=== PATIENT | female | born 1975 | race Caucasian/White ===

== ENCOUNTER 2019-09-15 07:16 | Day surgery (SDC) | payer BC, OTHER ==
[~2019-09-15 07:16] MED LIST: Dexamethasone 4 MG/ML 5 ML MDV ONE; Lactated Ringers 1,000 ML IV SCH; Midazolam 1 MG/ML 2 ML SDV ONE; Ondansetron 4 MG/2 ML SDV ONE; Propofol 200 MG/20 ML SDV ONE; ceFAZolin 2 GM in Premix Bag 1 BAG IV SCH; ceFAZolin/Dextrose,Iso-Osmotic 2 GM/50 ML Duplex Bag IV ONE; fentaNYL 250 MCG/5 ML SDV ONE
[2019-09-15] MEDS ORDERED: Scopolamine 1.5 MG Transdermal Patch TRDERM PRN (08:15)
--- NOTE | 2019-09-15 08:15 | PCM.PREANE ---
Preanesthetic Assessment - Anesthesia/Transfusion/Family Hx Type of Anesthesia Reaction: Excessive Nausea/Vomiting Family History of Anesthesia Reaction: No Transfusion History: No Prior Transfusion(s) Intubation History: Unknown - Review of Systems General: No Symptoms Pulmonary: No Symptoms Cardiovascular: No Symptoms Gastrointestinal: No Symptoms Neurological: No Symptoms Other: Reports: None - Physical Assessment Height: 5 ft 7 in Weight: 64.864 kg ASA Class: 1 Mental Status: Alert & Oriented x3 Airway Class: Mallampati = 2 Dentition: Reports: Normal Dentition Thyro-Mental Finger Breadths: 3 Mouth Opening Finger Breadths: 3 ROM/Head Extension: Full Lungs: Clear to Auscultation, Normal Respiratory Effort Cardiovascular: Regular Rate, Regular Rhythm - Lab Values: Laboratory Last Values Urine HCG, Qual NEGATIVE (NEGATIVE) 09/15/19 07:30 - Allergies Allergies/Adverse Reactions: Allergies Allergy/AdvReac Type Severity Reaction Status Date / Time No Known Allergies Allergy Verified 09/09/19 10:47 - Blood Blood Available: No - Anesthesia Plan Pre-Op Medication Ordered: None - Acknowledgements Anesthesia Type Planned: General Anesthesia Pt an Appropriate Candidate for the Planned Anesthesia: Yes Alternatives and Risks of Anesthesia Discussed w Pt/Guardian: Yes Pt/Guardian Understands and Agrees with Anesthesia Plan: Yes PreAnesthesia Questionnaire HEENT History: Reports: None Cardiovascular History: Reports: None Respiratory History: Reports: None Gastrointestinal History: Reports: None Genitourinary History: Reports: Renal Calculus [employer]ENTICE History: Reports: Musculoskeletal History: Reports: Osteoarthritis, Other (See Below) (pinning of left hip slipped femoral epiphysis at age 11) Neurological History: Reports: None Psychiatric History: Reports: None Endocrine/Metabolic History: Reports: Other (See Below) Other Endocrine/Metabolic History: goiter Hematologic History: Reports: None Immunologic History: Reports: None Other Oncologic History: melanoma-rt hip Dermatologic History: Reports: Other (See Below) Other Dermatologic History: melanoma R hip - Past Surgical History Head Surgeries/Procedures: Reports: None HEENT Surgical History: Reports: None Cardiovascular Surgical History: Reports: None Respiratory Surgical History: Reports: None GI Surgical History: Reports: None Female Surgical History: Reports: Section, Lithotripsy/ESWL Endocrine Surgical History: Reports: None Neurological Surgical History: Reports: None Musculoskeletal Surgical History: Reports: Other (See Below) Other Musculoskeletal Surgeries/Procedures:: hx sx R foot, percutaneous pinning for slipped capital femoral epiphysis-left hip Oncologic Surgical History: Reports: None Dermatological Surgical History: Reports: Skin Biopsy - SUBSTANCE USE Smoking Status *Q: Never Smoker - HOME MEDS Home Medications: Home Meds Multivitamin [Multivitamins] 1 tab PO DAILY 09/09/19 [History] - CURRENT (IN HOUSE) MEDS Current Meds: Current Medications Lactated Ringer's (Ringers, Lactated) 1,000 mls @ 125 mls/hr IV ASDIRECTED PHILL Cefazolin Sodium/Dextrose 2 gm (/ Premix) 50 mls @ 100 mls/hr IV ONETIME PHILL Discontinued Medications Cefazolin Sodium/Dextrose (Ancef) Confirm Administered Dose 2 gm IV .STK-MED ONE Stop: 09/15/19 07:04 Dexamethasone (Dexamethasone) Confirm Administered Dose 20 mg .ROUTE .STK-MED ONE Stop: 09/15/19 07:12 Fentanyl (Sublimaze) Confirm Administered Dose 250 mcg .ROUTE .STK-MED ONE Stop: 09/15/19 07:11 Lidocaine HCl (Xylocaine-Mpf 1%) Confirm Administered Dose 5 ml .ROUTE .STK-MED ONE Stop: 09/15/19 07:12 Midazolam HCl (Versed 1 Mg/Ml) Confirm Administered Dose 2 mg .ROUTE .STK-MED ONE Stop: 09/15/19 07:02 Ondansetron HCl (Zofran) Confirm Administered Dose 4 mg .ROUTE .STK-MED ONE Stop: 09/15/19 07:12 Propofol (Diprivan 20 Ml) Confirm Administered Dose 200 mg .ROUTE .STK-MED ONE Stop: 09/15/19 07:02
[2019-09-15] MEDS ORDERED: fentaNYL 100 MCG/2 ML SDV IVPUSH PRN ×2 (08:20→10:56)
[2019-09-15] MEDS ORDERED: Glycopyrrolate 0.2 MG/ML SDV ONE ×2 (09:04→09:07)
[2019-09-15] MEDS ORDERED: Phenylephrine/Normal Saline 100 MCG/ML 10 ML Syringe ONE (09:04)
[2019-09-15] MEDS ORDERED: Ketorolac 30 MG/ML SDV ONE (09:06)
[2019-09-15] MEDS ORDERED: Bupivacaine 0.5% 30 ML SDV ONE (09:56)
[2019-09-15] MEDS ORDERED: Acetaminophen/HYDROcodone 325-5 MG Tab PO ONE (09:57)
--- NOTE | 2019-09-15 09:58 | PCM.OPNOTE ---
- General Post-Op/Procedure Note Date of Surgery/Procedure: 09/15/19 Operative Procedure(s): removal of hardware deep left hip Findings: SCFE screw Pre Op Diagnosis: left hip retained hardware Post-Op Diagnosis: same Anesthesia Technique: General LMA Primary Surgeon: Abdelrahman Tsang Mai Pack Operator: Ginger Velazco EBL in mLs: 5 Complications: none Condition: Good
--- NOTE | 2019-09-15 10:46 | PCM.POSTAN ---
POST ANESTHESIA ASSESSMENT - MENTAL STATUS Mental Status: Alert, Oriented - VITAL SIGNS Vital Signs: Last Vital Signs Temp 36.4 C 09/15/19 10:05 Pulse 63 09/15/19 10:36 Resp 10 L 09/15/19 10:36 BP 96/52 L 09/15/19 10:36 Pulse Ox 94 L 09/15/19 10:36 - RESPIRATORY Respiratory Status: Respiratory Rate WNL, Airway Patent, O2 Saturation Stable - CARDIOVASCULAR CV Status: Pulse Rate WNL, Blood Pressure Stable - GASTROINTESTINAL GI Status: No Symptoms - PAIN Pain Score: 0 - POST OP HYDRATION Hydration Status: Adequate & Stable
--- NOTE | 2019-09-15 12:53 | PCM48HPAN ---
Post Anesthesia Note - EVALUATION WITHIN 48HRS OF ANESTHETIC Vital Signs in Normal Range: Yes Patient Participated in Evaluation: Yes Respiratory Function Stable: Yes Airway Patent: Yes Cardiovascular Function Stable: Yes Hydration Status Stable: Yes Pain Control Satisfactory: Yes Nausea and Vomiting Control Satisfactory: Yes Mental Status Recovered: Yes Vital Signs: Last Vital Signs Temp 36.5 C 09/15/19 10:50 Pulse 70 09/15/19 10:50 Resp 15 09/15/19 10:50 BP 104/56 L 09/15/19 10:50 Pulse Ox 96 09/15/19 10:50
[2019-09-15 15:34] VITALS: BP 94/51; PULSE 60
--- NOTE | 2019-09-15 16:02 | CR ---
Left hip: Single fluoroscopic spot view of the left hip was obtained utilizing C-arm device. Lucency noted within the left hip, please correlate if this represents screw removal or represents decompression of the femoral head. No additional abnormality is seen. Fluoroscopy time given as 144.9 seconds Impression: 1. Procedural study as noted above. Diagnostic code #2 This report was dictated in [place] Standard Time
--- NOTE | 2019-09-15 16:26 | OR ---
SURGEON: Abdelrahman Vela MD DATE OF PROCEDURE: 09/15/2019 PRIMARY SURGEON: Abdelrahman Vela MD. DIRECTOR OF HOME ECONOMICS: WESTON Rubio. PREOPERATIVE DIAGNOSIS: Retained hardware, left hip. POSTOPERATIVE DIAGNOSIS: Retained hardware, left hip. OPERATION PERFORMED: Removal of hardware, deep, left hip. ANESTHESIA: General LMA. COMPLICATIONS: None. ESTIMATED BLOOD LOSS: 5 mL. SPECIMENS: None. INDICATIONS: Patient is a 43-year-old female, who had a SCFI when she was younger with a single noncannulated screw. She has severe arthritis, needs hip replacement. I discussed with her staged removal of screw with replacement at a later date due to difficulty removing the screw, and therefore, she wished to proceed with screw removal. She understands the risks, benefits, alternatives, and complications of procedure including, but not limited to, infection, neurovascular injury, continued pain, nonresolution of symptoms, fracture, need for postoperative rehab protocol, and she wished to proceed. PROCEDURE IN DETAIL: Patient was seen in preoperative area. Operative site was marked with the patient. She was transferred to the operating, placed supine on a [place] table. General anesthesia was induced and an LMA was placed. She received preop antibiotics of Ancef. Leg was placed in leg bars in scissor position, and the left hip was prepped and draped in a sterile fashion using alcohol followed by ChloraPrep. A formal time-out was taken identifying the correct patient, procedure, and extremity. Anatomic landmarks were marked out. The inferior aspect of her large lateral incision was made about 1 to 2 cm. Dissection was carried down to the femur. A small easy out was placed onto the screw using biplanar fluoroscopy and it was noted that it would not engage, therefore, a slightly larger one was able to be placed on it. This engaged and backed out slightly, but it would not grab more likely due to the narrow aspect of the head. After several attempts with this, a small drill bit used to drill a larger opening and the larger easy out was able be placed into it and backed out; however, the screw head broke off. At this point, the Core reamer of 5 mm was placed over the shaft and on reverse was able to drill through the cortex and grabbed the shaft and backed the screw out. The wound was then irrigated and anesthetized with Marcaine. Subcutaneous tissues closed with 0 Vicryl, skin with Monocryl. Aquacel dressing was placed. Patient was extubated in the operating room, transferred to recovery room in stable condition. Sponge and needle counts were correct at the end of case, and there were no complications. MUKESH YOUNG /[id number]
== END 2019-09-15 12:55 | disposition home or self-care (01) ==
LOC: MW.SDS 07:16
PROVIDERS: ATTEND Orthopaedic Surgery
DX: T84.84XA Pain due to internal orthopedic prosthetic devices, implants and grafts, initial encounter (principal); M16.12 Unilateral primary osteoarthritis, left hip; Y83.1 Surgical operation with implant of artificial internal device as the cause of abnormal reaction of the patient, or of later complication, without mention of misadventure at the time of the procedure; Z79.1 Long term (current) use of non-steroidal anti-inflammatories (NSAID)
CPT/HCPCS: 20680; 76000; 81025; A9270; J0690; J1100; J1885; J2001; J2250; J2370; J2405; J2704; J3010; J3490; J7120; 01210; 88300

== ENCOUNTER 2021-11-08 06:37 | Day surgery (SDC) | payer BC ==
[~2021-11-08 06:37] MED LIST changes: -Dexamethasone 4 MG/ML 5 ML MDV ONE; -Midazolam 1 MG/ML 2 ML SDV ONE; -Ondansetron 4 MG/2 ML SDV ONE; -Propofol 200 MG/20 ML SDV ONE; +Sodium Chloride 0.9% 10 ML Syringe FLUSH PRN; +Sodium Chloride 0.9% 2.5 ML Syringe FLUSH PRN; +Sodium Chloride 0.9% 20 ML SDV IV PRN; +ceFAZolin 2 GM in Premix Bag 1 BAG IV ONE; -ceFAZolin 2 GM in Premix Bag 1 BAG IV SCH; -ceFAZolin/Dextrose,Iso-Osmotic 2 GM/50 ML Duplex Bag IV ONE; -fentaNYL 250 MCG/5 ML SDV ONE
[2021-11-08] MEDS ORDERED: Bupivacaine 0.5% 30 ML SDV ONE (07:13)
[2021-11-08] MEDS ORDERED: Methylene Blue 50 MG/10 ML Ampule ONE (07:13)
[2021-11-08] MEDS ORDERED: Lidocaine 1% 20 ML MDV ONE (07:13)
[2021-11-08] MEDS ORDERED: Ondansetron 4 MG/2 ML SDV IVPUSH PRN (07:27)
[2021-11-08] MEDS ORDERED: Albuterol 0.083% 2.5 MG/3 ML Neb Soln NEB PRN (07:27)
[2021-11-08] MEDS ORDERED: HYDROmorphone 1 MG/ML Syringe IVPUSH PRN (07:27)
[2021-11-08] MEDS ORDERED: Morphine 2 MG/ML SYRINGE IVPUSH PRN (07:27)
[2021-11-08] MEDS ORDERED: fentaNYL 100 MCG/2 ML SDV IVPUSH PRN (07:27)
[2021-11-08] MEDS ORDERED: Naloxone 0.4 MG/ML SDV IVPUSH PRN (07:27)
[2021-11-08] MEDS ORDERED: Metoclopramide 10 MG/2 ML SDV IVPUSH PRN (07:27)
[2021-11-08] MEDS ORDERED: Dexamethasone 4 MG/ML 5 ML MDV ONE (07:28)
[2021-11-08] MEDS ORDERED: Lidocaine 1% 5 ML VIAL ONE (07:28)
[2021-11-08] MEDS ORDERED: Ondansetron 4 MG/2 ML SDV ONE (07:28)
[2021-11-08] MEDS ORDERED: fentaNYL 100 MCG/2 ML SDV ONE (07:29)
[2021-11-08] MEDS ORDERED: Midazolam 1 MG/ML 2 ML SDV ONE (07:29)
[2021-11-08] MEDS ORDERED: Ketamine HCL/NACL, ISO-OSM 50 MG/5 ML Syringe ONE (07:33)
[2021-11-08] MEDS ORDERED: propofoL 50 ML ONE (07:39)
[2021-11-08] MEDS ORDERED: Propofol 200 MG/20 ML SDV ONE (07:43)
[2021-11-08] MEDS ORDERED: Water For Injection, Sterile 20 ML ONE (08:23)
[2021-11-08] MEDS ORDERED: ePHEDrine 50 MG/ML SDV ONE (08:23)
[2021-11-08] MEDS ORDERED: Octyl 2-Cyanoacrylate 1 Tube ONE (08:37)
[2021-11-08 10:16] VITALS: BP 108/64; PULSE 68
== END 2021-11-08 11:08 | disposition home or self-care (01) ==
LOC: MW.SDS 06:37
PROVIDERS: ATTEND Surgery
DX: D17.1 Benign lipomatous neoplasm of skin and subcutaneous tissue of trunk (principal); J30.2 Other seasonal allergic rhinitis; Z98.890 Other specified postprocedural states; Z79.899 Other long term (current) drug therapy
CPT/HCPCS: 21931; 81025; A9270; J0690; J1100; J2250; J2405; J2704; J3010; J3490; J7120; 00300